=== PATIENT | male | born 1965 | race African-American/Black ===

== ENCOUNTER 2016-06-13 19:54 | Inpatient (IN) | payer OTHER ==
[2016-06-13 21:10] VITALS: BMI 24.4
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
[2016-06-13] MEDS ORDERED: hydrOXYzine PAMOATE 50 MG CAPSULE (FP) PO PRN (23:44)
[2016-06-13] MEDS ORDERED: guaiFENesin/D-METHORPHAN HB 10 ML UNIT-DOSE CUPS PO PRN (23:44)
[2016-06-13] MEDS ORDERED: NICOTINE POLACRILEX 2 MG GUM BC PRN (23:44)
[2016-06-13] MEDS ORDERED: diphenhydrAMINE HCL 50 MG CAPSULE PO PRN (23:44)
[2016-06-13] MEDS ORDERED: LOPERAMIDE HCL 2 MG CAPSULE PO PRN (23:44)
[2016-06-13] MEDS ORDERED: ACETAMINOPHEN 325 MG TABLET (FP) PO PRN (23:44)
[2016-06-13] MEDS ORDERED: MAGNESIUM CITRATE 300 ML BOTTLE PO PRN (23:44)
[2016-06-13] MEDS ORDERED: MAG HYDROX/AL HYDROX/SIMETH 30 ML UNIT-DOSE CUP PO PRN (23:44)
[2016-06-13] MEDS ORDERED: MENTHOL/PHENOL 1 EACH UD MM PRN (23:44)
[2016-06-13] MEDS ORDERED: IBUPROFEN 400 MG TABLET (FP) PO PRN (23:44)
[2016-06-13] MEDS ORDERED: MAGNESIUM HYDROX 2400MG/30ML ORAL SUSPENSION 30 ML CUP PO PRN (23:44)
[2016-06-13] MEDS ORDERED: P-EPHED 60MG/TRIPROLIDI 2.5MG TABLET PO PRN (23:44)
[2016-06-14] MEDS ORDERED: METHADONE HCL 10 MG TABLET (FOR DETOX USE ONLY) PO ONE ×6 (00:39→22:00)
[2016-06-14] MEDS ORDERED: chlordiazePOXIDE HCL 25 MG CAPSULE PO ONE ×2 (00:39→01:41)
[2016-06-14] MEDS ORDERED: chlordiazePOXIDE HCL 25 MG CAPSULE PO PRN ×2 (00:39→01:41)
[2016-06-14 02:37] LABS: URINE APPEARANCE CLEAR; URINE BILIRUBIN NEGATIVE (NEGATIVE); URINE BLOOD NEGATIVE (NEGATIVE); URINE COLOR LTYELLOW; URINE GLUCOSE (UA) NEGATIVE (NEGATIVE); URINE KETONE NEGATIVE (NEGATIVE); URINE LEUK ESTERASE NEGATIVE (NEGATIVE); URINE NITRITE NEGATIVE (NEGATIVE); URINE PROTEIN NEGATIVE (NEGATIVE); URINE UROBILINOGEN NEGATIVE E.U./dl (0.2-1.0)
[2016-06-14] MEDS ORDERED: chlordiazePOXIDE HCL 25 MG CAPSULE PO SCH (05:00)
[2016-06-14] MEDS: chlordiazePOXIDE HCL 25 MG CAPSULE PO SCH ×4 (06:02→22:25)
--- NOTE | 2016-06-14 10:12 | PN ---
[facility] CIWA - CIWA Score Nausea/Vomitin-No Nausea/No Vomiting Muscle Tremors: 3 Anxiety: 3 Agitation: 3 Paroxysmal Sweats: 3 Orientation: 0-Oriented Tacttile Disturbances: 0-None Auditory Disturbances: 0-None Visual Disturbances: 0-None Headache: 0-None Present CIWA-Ar Total Score: 12 BHS COWS - Scale Resting Pulse: 0= [place] 80 or Below Sweatin=Flushed/Facial Moisture Restless Observation: 1= Difficult to Sit Still Pupil Size: 0= Normal to Room Light Bone or Joint Aches: 2= Severe Diffuse Aches Runny Nose/ Eye Tearin= Runny Nose/Eyes GI Upset > 30mins: 1= Stomach Cramp Tremor Observation of Outstretched Hands: 2= Slight Tremor Visible Yawning Observation: 2= >3x During Session Anxiety or Irritability: 2=Irritable/Anxious Goose Flesh Skin: 0=Smooth Skin COWS Score: 14 S Progress Note (SOAP) Subjective: shakes sweats irritable chills interrupted sleep Objective: 06/14/16 10:10 Vital Signs Temperature 98.1 F 06/14/16 10:06 Pulse Rate 65 06/14/16 10:06 Respiratory Rate 16 06/14/16 10:06 Blood Pressure 116/78 06/14/16 10:06 O2 Sat by Pulse Oximetry (%) Laboratory Tests 06/14/16 00:05 Urine Color Ltyellow Urine Appearance Clear Urine pH 9.0 H D Ur Specific [place] 1.014 Urine Protein Negative Urine Glucose (UA) Negative Urine Ketones Negative Urine Blood Negative Urine Nitrite Negative Urine Bilirubin Negative Urine Urobilinogen Negative Ur Leukocyte Esterase Negative labs pending awake/alert ambulating no acute distress Assessment: 06/14/16 10:10 withdrawal sx Plan: continue detox increase fluids labs pending
[2016-06-14 10:32] LABS: ALBUMIN 3.3 g/dl (3.4-5.0); ALK PHOS 94 U/L (45-117); ANION GAP -1 (8-16); BILIRUBIN,TOTAL 0.2 mg/dL (0.2-1.0); CALCIUM 8.5 mg/dL (8.5-10.1); CO2 31 mmol/L (21-32); GLUCOSE,RANDOM 111 mg/dL (74-106); SGOT/AST 17 U/L (15-37); SGPT/ALT 23 U/L (12-78); TOT PROT 6.4 g/dl (6.4-8.2)
[2016-06-14 10:34] LABS: MCH 30.6 pg (25.7-33.7); MCHC 33.1 g/dl (32.0-35.9); MEAN CELL VOLUME 92.5 fl (80-96); MEAN PLT VOLUME 8.5 fl (7.5-11.1); PLATELET COUNT 285 K/MM3 (134-434); RDW 14.4 % (11.9-15.9); WHITE BLOOD COUNT 8.1 K/mm3 (4.0-10.0)
[2016-06-14] MEDS: NICOTINE 21 MG/24 HOURS TOPICAL PATCH TD SCH (11:06)
[2016-06-14] MEDS: PRENATAL VITAMINS W/ FOLIC ACID TABLET (FP) PO SCH (11:07)
--- NOTE | 2016-06-14 11:50 | EKG ---
Test Reason : Blood Pressure : / mmHG Vent. Rate : 062 BPM Atrial Rate : 062 BPM P-R Int : 138 ms QRS Dur : 108 ms QT Int : 448 ms P-R-T Axes : 051 -46 004 degrees QTc Int : 454 ms NORMAL SINUS RHYTHM RIGHT BUNDLE BRANCH BLOCK LEFT ANTERIOR FASCICULAR BLOCK BIFASCICULAR BLOCK ABNORMAL ECG NO PREVIOUS ECGS AVAILABLE Confirmed by GARRY POOLE, CAESAR ([id number]) on 06/14/2016 11:50:13 AM Referred By: Confirmed By:CAESAR CASTAÑEDA MD
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
[2016-06-14] MEDS: ZOLPIDEM TARTRATE 10 MG TABLET (PARK CARE ONLY) PO PRN (22:24)
[2016-06-14] MEDS: THIAMINE HCL 100 MG TABLET (FP) PO SCH (22:24)
[2016-06-15] MEDS ORDERED: chlordiazePOXIDE HCL 25 MG CAPSULE PO SCH (05:00)
[2016-06-15] MEDS: chlordiazePOXIDE HCL 25 MG CAPSULE PO SCH ×4 (05:43→22:32)
[2016-06-15] MEDS ORDERED: METHADONE HCL 5 MG TABLET (FOR DETOX USE ONLY) PO SCH ×2 (10:00)
--- NOTE | 2016-06-15 10:14 | PN ---
S CIWA - CIWA Score Nausea/Vomitin Muscle Tremors: 3 Anxiety: 3 Agitation: 2 Paroxysmal Sweats: 3 Orientation: 0-Oriented Tacttile Disturbances: 1-Very Mild Itch/Numbness Auditory Disturbances: 0-None Visual Disturbances: 0-None Headache: 0-None Present CIWA-Ar Total Score: 14 S COWS - Scale Resting Pulse: 0= [place] 80 or Below Sweatin=Flushed/Facial Moisture Restless Observation: 1= Difficult to Sit Still Pupil Size: 1= Pupils >than Normal Bone or Joint Aches: 1= Mild Discomfort Runny Nose/ Eye Tearin= Nasal Congestion GI Upset > 30mins: 1= Stomach Cramp Tremor Observation of Outstretched Hands: 1= Tremor [place], Not Seen Yawning Observation: 0= None Anxiety or Irritability: 2=Irritable/Anxious Goose Flesh Skin: 0=Smooth Skin COWS Score: 10 S Progress Note (SOAP) Subjective: interrupted sleep, sweats, shakes decreased appetite, lbp Objective: 06/15/16 10:12 Laboratory Tests 06/14/16 06/14/16 06/14/16 00:05 07:00 07:00 WBC 8.1 RBC 4.19 Hgb 12.8 Hct 38.8 MCV 92.5 MCHC 33.1 RDW 14.4 Plt Count 285 MPV 8.5 Sodium 137 Potassium 3.7 Chloride 107 Carbon Dioxide 31 Anion Gap -1 L BUN 10 Creatinine 1.0 Creat Clearance w eGFR > 60 Random Glucose 111 H D Calcium 8.5 Total Bilirubin 0.2 AST 17 ALT 23 D Alkaline Phosphatase 94 Total Protein 6.4 Albumin 3.3 L Urine Color Ltyellow Urine Appearance Clear Urine pH 9.0 H D Ur Specific [place] 1.014 Urine Protein Negative Urine Glucose (UA) Negative Urine Ketones Negative Urine Blood Negative Urine Nitrite Negative Urine Bilirubin Negative Urine Urobilinogen Negative Ur Leukocyte Esterase Negative RPR Titer 06/14/16 07:00 WBC RBC Hgb Hct MCV MCHC RDW Plt Count MPV Sodium Potassium Chloride Carbon Dioxide Anion Gap BUN Creatinine Creat Clearance w eGFR Random Glucose Calcium Total Bilirubin AST ALT Alkaline Phosphatase Total Protein Albumin Urine Color Urine Appearance Urine pH Ur Specific [place] Urine Protein Urine Glucose (UA) Urine Ketones Urine Blood Urine Nitrite Urine Bilirubin Urine Urobilinogen Ur Leukocyte Esterase RPR Titer Nonreactive pt aox3 in nad aambualting Assessment: 06/15/16 10:12 witrhdrawl sx's lbp decreased appetite Plan: cont. detox increase fluids motrin prn ensure bid
[2016-06-15] MEDS: NICOTINE 21 MG/24 HOURS TOPICAL PATCH TD SCH (11:10)
[2016-06-15] MEDS: PRENATAL VITAMINS W/ FOLIC ACID TABLET (FP) PO SCH (11:11)
[2016-06-15] MEDS: THIAMINE HCL 100 MG TABLET (FP) PO SCH (22:31)
[2016-06-15] MEDS: ZOLPIDEM TARTRATE 10 MG TABLET (PARK CARE ONLY) PO PRN (22:32)
[2016-06-16] MEDS ORDERED: chlordiazePOXIDE 5 MG CAPSULE PO SCH (05:00)
[2016-06-16] MEDS: chlordiazePOXIDE 5 MG CAPSULE PO SCH ×4 (05:44→22:35)
[2016-06-16] MEDS ORDERED: METHADONE HCL 5 MG TABLET (FOR DETOX USE ONLY) PO SCH (10:00)
[2016-06-16] MEDS: PRENATAL VITAMINS W/ FOLIC ACID TABLET (FP) PO SCH (10:08)
[2016-06-16] MEDS: METHADONE HCL 5 MG TABLET (FOR DETOX USE ONLY) PO SCH (10:09)
[2016-06-16] MEDS: NICOTINE 21 MG/24 HOURS TOPICAL PATCH TD SCH (10:09)
--- NOTE | 2016-06-16 11:27 | PN ---
BHS Progress Note (SOAP) Subjective: irritable agitation sweats tired Objective: 06/16/16 11:26 Vital Signs Temperature 98.1 F 06/16/16 10:00 Pulse Rate 83 06/16/16 10:00 Respiratory Rate 18 06/16/16 10:00 Blood Pressure 126/78 06/16/16 10:00 O2 Sat by Pulse Oximetry (%) Laboratory Tests 06/14/16 06/14/16 06/14/16 00:05 07:00 07:00 WBC 8.1 RBC 4.19 Hgb 12.8 Hct 38.8 MCV 92.5 MCHC 33.1 RDW 14.4 Plt Count 285 MPV 8.5 Sodium 137 Potassium 3.7 Chloride 107 Carbon Dioxide 31 Anion Gap -1 L BUN 10 Creatinine 1.0 Creat Clearance w eGFR > 60 Random Glucose 111 H D Calcium 8.5 Total Bilirubin 0.2 AST 17 ALT 23 D Alkaline Phosphatase 94 Total Protein 6.4 Albumin 3.3 L Urine Color Ltyellow Urine Appearance Clear Urine pH 9.0 H D Ur Specific [place] 1.014 Urine Protein Negative Urine Glucose (UA) Negative Urine Ketones Negative Urine Blood Negative Urine Nitrite Negative Urine Bilirubin Negative Urine Urobilinogen Negative Ur Leukocyte Esterase Negative RPR Titer 06/14/16 07:00 WBC RBC Hgb Hct MCV MCHC RDW Plt Count MPV Sodium Potassium Chloride Carbon Dioxide Anion Gap BUN Creatinine Creat Clearance w eGFR Random Glucose Calcium Total Bilirubin AST ALT Alkaline Phosphatase Total Protein Albumin Urine Color Urine Appearance Urine pH Ur Specific [place] Urine Protein Urine Glucose (UA) Urine Ketones Urine Blood Urine Nitrite Urine Bilirubin Urine Urobilinogen Ur Leukocyte Esterase RPR Titer Nonreactive awake/alert ambulating no acute distress Assessment: 06/16/16 11:27 withdrawal sx Plan: continue detox increase fluids
[2016-06-16] MEDS: THIAMINE HCL 100 MG TABLET (FP) PO SCH (22:35)
[2016-06-16] MEDS: ZOLPIDEM TARTRATE 10 MG TABLET (PARK CARE ONLY) PO PRN (22:35)
[2016-06-17] MEDS ORDERED: chlordiazePOXIDE HCL 10 MG CAPSULE PO SCH (05:00)
[2016-06-17] MEDS: chlordiazePOXIDE HCL 10 MG CAPSULE PO SCH ×4 (05:49→22:09)
[2016-06-17] MEDS: PRENATAL VITAMINS W/ FOLIC ACID TABLET (FP) PO SCH (10:30)
[2016-06-17] MEDS: METHADONE HCL 5 MG TABLET (FOR DETOX USE ONLY) PO SCH (10:30)
[2016-06-17] MEDS: NICOTINE 21 MG/24 HOURS TOPICAL PATCH TD SCH (10:30)
--- NOTE | 2016-06-17 13:57 | PN ---
BHS Progress Note (SOAP) Subjective: nausea, sweats, interrupted sleep, anxiety, tremor Objective: 06/17/16 13:56 Vital Signs 06/17/16 06/17/16 06:29 10:02 Temperature 97.9 F 97.1 F L Pulse Rate 61 89 Respiratory 16 16 Rate Blood Pressure 103/67 133/86 Laboratory Tests 06/14/16 06/14/16 06/14/16 00:05 07:00 07:00 WBC 8.1 RBC 4.19 Hgb 12.8 Hct 38.8 MCV 92.5 MCHC 33.1 RDW 14.4 Plt Count 285 MPV 8.5 Sodium 137 Potassium 3.7 Chloride 107 Carbon Dioxide 31 Anion Gap -1 L BUN 10 Creatinine 1.0 Creat Clearance w eGFR > 60 Random Glucose 111 H D Calcium 8.5 Total Bilirubin 0.2 AST 17 ALT 23 D Alkaline Phosphatase 94 Total Protein 6.4 Albumin 3.3 L Urine Color Ltyellow Urine Appearance Clear Urine pH 9.0 H D Ur Specific [place] 1.014 Urine Protein Negative Urine Glucose (UA) Negative Urine Ketones Negative Urine Blood Negative Urine Nitrite Negative Urine Bilirubin Negative Urine Urobilinogen Negative Ur Leukocyte Esterase Negative RPR Titer 06/14/16 07:00 WBC RBC Hgb Hct MCV MCHC RDW Plt Count MPV Sodium Potassium Chloride Carbon Dioxide Anion Gap BUN Creatinine Creat Clearance w eGFR Random Glucose Calcium Total Bilirubin AST ALT Alkaline Phosphatase Total Protein Albumin Urine Color Urine Appearance Urine pH Ur Specific [place] Urine Protein Urine Glucose (UA) Urine Ketones Urine Blood Urine Nitrite Urine Bilirubin Urine Urobilinogen Ur Leukocyte Esterase RPR Titer Nonreactive Assessment: 06/17/16 13:57 withdrawal sx Plan: cont detox, fluids
[2016-06-17] MEDS: THIAMINE HCL 100 MG TABLET (FP) PO SCH (22:09)
[2016-06-17] MEDS: ZOLPIDEM TARTRATE 10 MG TABLET (PARK CARE ONLY) PO PRN (22:09)
--- NOTE | 2016-06-18 09:06 | PN ---
BHS Progress Note (SOAP) Subjective: no complaints Objective: 06/18/16 09:04 Vital Signs - 8 hr 06/18/16 06/18/16 03:30 06:00 Temperature 97.7 F Pulse Rate 65 Respiratory 18 18 Rate Blood Pressure 96/61 Laboratory Tests 06/14/16 06/14/16 06/14/16 00:05 07:00 07:00 WBC 8.1 RBC 4.19 Hgb 12.8 Hct 38.8 MCV 92.5 MCHC 33.1 RDW 14.4 Plt Count 285 MPV 8.5 Sodium 137 Potassium 3.7 Chloride 107 Carbon Dioxide 31 Anion Gap -1 L BUN 10 Creatinine 1.0 Creat Clearance w eGFR > 60 Random Glucose 111 H D Calcium 8.5 Total Bilirubin 0.2 AST 17 ALT 23 D Alkaline Phosphatase 94 Total Protein 6.4 Albumin 3.3 L Urine Color Ltyellow Urine Appearance Clear Urine pH 9.0 H D Ur Specific [place] 1.014 Urine Protein Negative Urine Glucose (UA) Negative Urine Ketones Negative Urine Blood Negative Urine Nitrite Negative Urine Bilirubin Negative Urine Urobilinogen Negative Ur Leukocyte Esterase Negative RPR Titer 06/14/16 07:00 WBC RBC Hgb Hct MCV MCHC RDW Plt Count MPV Sodium Potassium Chloride Carbon Dioxide Anion Gap BUN Creatinine Creat Clearance w eGFR Random Glucose Calcium Total Bilirubin AST ALT Alkaline Phosphatase Total Protein Albumin Urine Color Urine Appearance Urine pH Ur Specific [place] Urine Protein Urine Glucose (UA) Urine Ketones Urine Blood Urine Nitrite Urine Bilirubin Urine Urobilinogen Ur Leukocyte Esterase RPR Titer Nonreactive Assessment: 06/18/16 09:05 completed , detox Plan: d/c today, f/u [facility] clinic and then rehab
--- NOTE | 2016-06-18 09:08 | DS ---
[facility] Detox Discharge Summary Admission Date: 06/13/16 Discharge Date: 06/18/16 - History Present History: Alcohol Dependence, Cocaine Dependence, Opioid Dependence Pertinent Past History: astma, PTSD, anxiety, depression and insomnia, nicotine dependence - Physical Exam Results Vital Signs: Vital Signs Temperature 97.7 F 06/18/16 06:00 Pulse Rate 65 06/18/16 06:00 Respiratory Rate 18 06/18/16 06:00 Blood Pressure 96/61 06/18/16 06:00 O2 Sat by Pulse Oximetry (%) Pertinent Admission Physical Exam Findings: withdrawal sx - Treatment Hospital Course: Detox Protocol Followed, Detoxed Safely, Responded well, Discharged Condition Good, Rehab Referral Accepted - Medication Discharge Medications: Ambulatory Orders Bupropion HCl [Wellbutrin -] 100 mg PO BID #60 tablet 10/16/13 Albuterol Sulfate Inhaler - [Ventolin HFA Inhaler -] 2 inh PO QID #7 cartridge 09/12/15 - Diagnosis (1) PTSD (post-traumatic stress disorder) Current Visit: Yes Status: Acute (2) Alcohol dependence with uncomplicated withdrawal Current Visit: Yes Status: Chronic (3) Asthma Current Visit: Yes Status: Chronic Qualifiers: Asthma severity: unspecified severity Asthma complication type: uncomplicated Qualified Code(s): J45.909 - Unspecified asthma, uncomplicated (4) Opioid dependence with withdrawal Current Visit: Yes Status: Chronic (5) Alcohol dependence Current Visit: No Status: Acute (6) Bipolar 1 disorder with moderate macrina Current Visit: No Status: Acute (7) Cocaine dependence Current Visit: No Status: Acute (8) Drug-induced mood disorder Current Visit: No Status: Acute (9) Nicotine dependence Current Visit: No Status: Acute (10) Opioid dependence Current Visit: No Status: Acute - AMA Did Patient Leave Against Medical Advice: No
[2016-06-18] MEDS: PRENATAL VITAMINS W/ FOLIC ACID TABLET (FP) PO SCH (09:32)
[2016-06-18] MEDS: NICOTINE 21 MG/24 HOURS TOPICAL PATCH TD SCH (09:35)
[2016-06-18] MEDS ORDERED: METHADONE HCL 10 MG TABLET (FOR DETOX USE ONLY) PO SCH ×2 (10:00)
[2016-06-18 10:58] VITALS: BP 128/87; PULSE 75; TEMP 97.2
[2016-06-19] MEDS ORDERED: METHADONE HCL 10 MG TABLET (FOR DETOX USE ONLY) PO SCH ×2 (06:00)
== END 2016-06-18 09:52 | disposition home or self-care (01) | DRG 773 ==
LOC: YASAS 19:54 → Y6N 23:40
PROVIDERS: ADMIT Internal Medicine Addiction Medicine; ATTEND Internal Medicine Addiction Medicine
PROC: HZ2ZZZZ Detoxification Services for Substance Abuse Treatment (ICD-10-PCS; principal; 2016-06-13)
DX: F11.23 Opioid dependence with withdrawal (principal); F10.230 Alcohol dependence with withdrawal, uncomplicated; F14.20 Cocaine dependence, uncomplicated; F17.210 Nicotine dependence, cigarettes, uncomplicated; F19.24 Other psychoactive substance dependence with psychoactive substance-induced mood disorder; F43.10 Post-traumatic stress disorder, unspecified; F31.9 Bipolar disorder, unspecified; J45.909 Unspecified asthma, uncomplicated; R63.0 Anorexia; M54.5 Low back pain
CPT/HCPCS: 36415; 80053; 81003; 85027; 86593; 93005; 93010

== ENCOUNTER 2022-07-06 11:22 | Inpatient (IN) | payer OTHER ==
[2022-07-06 12:22] VITALS: BMI 24.4
[2022-07-06] MEDS ORDERED: hydrOXYzine PAMOATE 25 MG CAPSULE (FP) PO PRN (13:33)
[2022-07-06] MEDS ORDERED: MAG HYDROX/AL HYDROX/SIMETH 30 ML UNIT-DOSE CUP PO PRN (13:33)
[2022-07-06] MEDS ORDERED: NALOXONE HCL (KLOXXADO) 8 MG SPRAY NS PRN (13:33)
[2022-07-06] MEDS ORDERED: BISMUTH SUBSALICYLATE 524 MG/30 ML PO PRN (13:33)
[2022-07-06] MEDS ORDERED: BENZOCAINE/MENTHOL (CHLORASEPTIC ) LOZENGE MM PRN (13:33)
[2022-07-06] MEDS ORDERED: ONDANSETRON *ODT* 4 MG TABLET SL PRN (13:33)
[2022-07-06] MEDS ORDERED: LOPERAMIDE HCL 2 MG CAPSULE PO PRN (13:33)
[2022-07-06] MEDS ORDERED: ACETAMINOPHEN 325 MG TABLET (FP) PO PRN ×2 (13:33)
[2022-07-06] MEDS ORDERED: MAGNESIUM HYDROX 2400MG/30ML ORAL SUSPENSION 30 ML CUP PO PRN (13:33)
[2022-07-06] MEDS ORDERED: POLYETHYLENE GLYCOL (HEALTHYLAX) 3350 17 GM PACKET PO PRN (13:33)
[2022-07-06] MEDS ORDERED: IBUPROFEN 600 MG TABLET (FP) PO PRN (13:33)
[2022-07-06] MEDS ORDERED: IBUPROFEN 400 MG TABLET (FP) PO PRN (13:33)
[2022-07-06] MEDS: ALBUTEROL SO4 HFA INHALER IH SCH ×2 (14:53→18:04)
[2022-07-06] MEDS: PRENATAL VITAMINS W/ FOLIC ACID TABLET (FP) PO SCH (14:53)
[2022-07-06] MEDS: NICOTINE 7 MG/24 HOURS TOPICAL PATCH TD SCH (14:53)
[2022-07-06] MEDS ORDERED: ALBUTEROL SO4 HFA INHALER IH PRN (19:14)
[2022-07-06] MEDS: THIAMINE HCL 100 MG TABLET (FP) PO SCH (22:52)
[2022-07-06] MEDS: MELATONIN 5 MG TABLETS PO SCH (22:52)
[2022-07-07] MEDS: PRENATAL VITAMINS W/ FOLIC ACID TABLET (FP) PO SCH (10:15)
[2022-07-07] MEDS: NICOTINE 7 MG/24 HOURS TOPICAL PATCH TD SCH (10:16)
[2022-07-07] MEDS ORDERED: diazePAM 5 MG TABLET PO PRN (10:59)
[2022-07-07 11:00] LABS: HEMATOCRIT 39.7 % (35.4-49); HEMOGLOBIN 13.3 GM/dL (11.7-16.9); MCH 32.8 pg (25.7-33.7); MCHC 33.5 g/dl (32.0-35.9); MEAN CELL VOLUME 98.1 fl (80-96); MEAN PLT VOLUME 8.9 fl (7.5-11.1); PLATELET COUNT 248 10^3/uL (134-434); RBC 4.04 M/mm3 (4.00-5.60); RDW 16.8 % (11.9-15.9); WHITE BLOOD COUNT 6.7 K/mm3 (4.0-10.0)
[2022-07-07 11:05] LABS: ALBUMIN 3.1 g/dl (3.4-5.0); CALCIUM 8.5 mg/dL (8.5-10.1)
[2022-07-07 11:06] LABS: BLOOD UREA NITROGEN 8.9 mg/dL (7-18)
[2022-07-07 11:08] LABS: CREATININE 0.9 mg/dL (0.55-1.3)
[2022-07-07 11:10] LABS: BILIRUBIN,TOTAL 0.5 mg/dL (0.2-1)
[2022-07-07] MEDS: diazePAM 5 MG TABLET PO SCH ×3 (12:28→22:24)
[2022-07-07] MEDS: DICYCLOMINE HCL 10 MG CAPSULE PO PRN (19:18)
[2022-07-07] MEDS: MELATONIN 5 MG TABLETS PO SCH (22:24)
[2022-07-07] MEDS: THIAMINE HCL 100 MG TABLET (FP) PO SCH (22:24)
[2022-07-08] MEDS: diazePAM 5 MG TABLET PO SCH ×4 (05:47→22:25)
[2022-07-08] MEDS: PRENATAL VITAMINS W/ FOLIC ACID TABLET (FP) PO SCH (10:33)
[2022-07-08] MEDS: NICOTINE 7 MG/24 HOURS TOPICAL PATCH TD SCH (10:35)
[2022-07-08] MEDS: NICOTINE 10 MG CARTRIDGE (INHALER) IH PRN (17:55)
[2022-07-08] MEDS: MELATONIN 5 MG TABLETS PO SCH (22:25)
[2022-07-08] MEDS: THIAMINE HCL 100 MG TABLET (FP) PO SCH (22:25)
[2022-07-09] MEDS: diazePAM 5 MG TABLET PO SCH ×3 (05:52→22:20)
[2022-07-09] MEDS: NICOTINE 7 MG/24 HOURS TOPICAL PATCH TD SCH (10:33)
[2022-07-09] MEDS: PRENATAL VITAMINS W/ FOLIC ACID TABLET (FP) PO SCH (10:33)
[2022-07-09] MEDS: MELATONIN 5 MG TABLETS PO SCH (22:18)
[2022-07-09] MEDS: THIAMINE HCL 100 MG TABLET (FP) PO SCH (22:18)
[2022-07-09] MEDS: METHOCARBAMOL 500 MG TABLET PO PRN (22:19)
[2022-07-10] MEDS: diazePAM 5 MG TABLET PO SCH ×2 (06:05→17:53)
[2022-07-10] MEDS: NICOTINE 7 MG/24 HOURS TOPICAL PATCH TD SCH (10:26)
[2022-07-10] MEDS: PRENATAL VITAMINS W/ FOLIC ACID TABLET (FP) PO SCH (10:26)
[2022-07-10] MEDS: DICYCLOMINE HCL 10 MG CAPSULE PO PRN (17:55)
[2022-07-10] MEDS: NICOTINE 10 MG CARTRIDGE (INHALER) IH PRN (19:00)
[2022-07-10] MEDS: MELATONIN 5 MG TABLETS PO SCH (21:59)
[2022-07-10] MEDS: METHOCARBAMOL 500 MG TABLET PO PRN (22:00)
[2022-07-10] MEDS: THIAMINE HCL 100 MG TABLET (FP) PO SCH (22:00)
[2022-07-11] MEDS ORDERED: diazePAM 5 MG TABLET PO ONE (06:00)
[2022-07-11 08:38] VITALS: BP 117/66; PULSE 68; RESP 16; TEMP 96
[2022-07-11] MEDS ORDERED: ASPIRIN COATED 81 MG TABLET.EC PO SCH (10:00)
[2022-07-11] MEDS: NICOTINE 7 MG/24 HOURS TOPICAL PATCH TD SCH (10:12)
[2022-07-11] MEDS: PRENATAL VITAMINS W/ FOLIC ACID TABLET (FP) PO SCH (10:12)
== END 2022-07-11 10:35 | disposition home or self-care (01) | DRG 773 ==
LOC: YASAS 11:22 → Y3N 14:30
PROVIDERS: ADMIT Allergy & Immunology; ATTEND Surgery
PROC: HZ2ZZZZ Detoxification Services for Substance Abuse Treatment (ICD-10-PCS; principal; 2022-07-06)
DX: F11.23 Opioid dependence with withdrawal (principal); F10.230 Alcohol dependence with withdrawal, uncomplicated; F14.20 Cocaine dependence, uncomplicated; F16.20 Hallucinogen dependence, uncomplicated; F12.20 Cannabis dependence, uncomplicated; F19.24 Other psychoactive substance dependence with psychoactive substance-induced mood disorder; F31.9 Bipolar disorder, unspecified; F41.9 Anxiety disorder, unspecified; F43.10 Post-traumatic stress disorder, unspecified; J45.909 Unspecified asthma, uncomplicated
CPT/HCPCS: 36415; 80053; 85027; 86780; 87811; 93005; 93010; C9803-CS; U0003; U0005